=== PATIENT | male | born 1950 | race Caucasian/White ===

== ENCOUNTER → 2025-10-08 | Outpatient (CLI) | payer MEDICARE | LOC: M WUC 11:06 | DX: S20.221A Contusion of right back wall of thorax, initial encounter (principal); K59.00 Constipation, unspecified; M54.6 Pain in thoracic spine; S32.010A Wedge compression fracture of first lumbar vertebra, initial encounter for closed fracture; S22.060A Wedge compression fracture of T7-T8 vertebra, initial encounter for closed fracture; X58.XXXA Exposure to other specified factors, initial encounter; Y92.9 Unspecified place or not applicable; Y93.9 Activity, unspecified; Y99.9 Unspecified external cause status; S22.31XA Fracture of one rib, right side, initial encounter for closed fracture; J90 Pleural effusion, not elsewhere classified; J98.11 Atelectasis ==